=== PATIENT | female | born 1945 | race Caucasian/White ===

== ENCOUNTER → 2018-11-13 | Outpatient (CLI) | payer OTHER ==
--- NOTE | 2018-11-13 17:50 | RAD ---
DATE: 11/13/2018 EXAM: MAMMO MICKEY SCREENING BILATERAL HISTORY: Routine screening. Bilateral breast reduction. COMPARISON: 07/11/2014, 09/12/2016 mammographic exams This study was interpreted with the benefit of Computerized Aided Detection (CAD). Breast Density: FATTY The breast parenchyma is primarily fatty replaced. Breast parenchyma level density A. FINDINGS: Benign calcifications are present. No masses or new distortion. IMPRESSION: Stable BI-RADS CATEGORY: 1 NEGATIVE RECOMMENDED FOLLOW-UP: 12M 12 MONTH FOLLOW-UP PQRS compliance statement: Patient information was entered into a reminder system with a target due date in one year for the next mammogram. Mammography is a sensitive method for finding small breast cancers, but it does not detect them all and is not a substitute for careful clinical examination. A negative mammogram does not negate a clinically suspicious finding and should not result in delay in biopsying a clinically suspicious abnormality. "Our facility is accredited by the [employer] Mammography Program."
== END | disposition home or self-care (01) ==
LOC: MAMMO 08:14
PROVIDERS: ATTEND Nurse Practitioner Family
DX: Z12.31 Encounter for screening mammogram for malignant neoplasm of breast (principal)
CPT/HCPCS: 77063; 77067

== ENCOUNTER → 2019-10-03 | Outpatient (CLI) | payer OTHER ==
--- NOTE | 2019-10-04 08:50 | RAD ---
PROCEDURE: HIP RIGHT 2V WITH PELVIS STUDY DATE: 10/04/2019 CLINICAL INDICATION / HISTORY: Right hip pain. TECHNIQUE: Three views of the right hip were obtained. COMPARISON: Right hip x-rays of 09/16/2019 FINDINGS: A right dynamic hip screw is present. A comminuted right hip fracture is also seen but the alignment is overall anatomic. The greater trochanter major fracture fragment appears mildly distracted from the femoral shaft, leaving the superior aspect of the femoral neck fixation hardware likely uncovered by bone. This could represent a second, superimposed acute fracture on a previously fixated fracture. The previous hip x-rays showed an acute intertrochanteric fracture of the slightly different morphology to the current hip fracture. No hip dislocation. Visualized pelvis is unremarkable. The soft tissues are also unremarkable.. IMPRESSION: Right dynamic hip screw fixation of a prior hip fracture which shows good position and evidence of healing but likely new, superimposed acute fracture of the right greater trochanter, uncovering a portion of the fixation hardware. Electronically signed by: Saba Hamilton MD (10/04/2019 8:47 AM) [id number]
== END ==
LOC: DXRAD 16:30
PROVIDERS: ATTEND Nurse Practitioner Family
DX: S72.141D Displaced intertrochanteric fracture of right femur, subsequent encounter for closed fracture with routine healing (principal); X58.XXXD Exposure to other specified factors, subsequent encounter
CPT/HCPCS: 73502

== ENCOUNTER → 2019-10-30 | Outpatient (CLI) | payer MEDICARE ==
--- NOTE | 2019-10-30 15:10 | RAD ---
HIP RIGHT 2V WITH PELVIS Clinical Indication: Right hip pain. Comparison: AP pelvis and right hip 10/03/2019. Findings: No acute pelvic fracture is identified. Degenerative spondylosis lower lumbar spine. The sacroiliac joints may be partially fused. The left hip joint is intact. Redemonstrated dynamic right hip screw and intramedullary debbie. Distal locking screw. Stable slightly superiorly distracted fracture of the greater trochanter. No new fracture is seen. New callus formation is identified adjacent to the greater and lesser trochanters. IMPRESSION: Stable superiorly distracted fracture of the greater trochanter. Internal fixation hardware of the proximal femur is stable. There is new callus formation. Electronically signed by: Puneet Ferguson MD (10/30/2019 2:27 PM) [id number]
== END ==
LOC: DXRAD 13:47
PROVIDERS: ATTEND Orthopaedic Surgery
DX: S72.141D Displaced intertrochanteric fracture of right femur, subsequent encounter for closed fracture with routine healing (principal); X58.XXXD Exposure to other specified factors, subsequent encounter
CPT/HCPCS: 73502

== ENCOUNTER → 2019-11-27 | Outpatient (CLI) | payer MEDICARE ==
--- NOTE | 2019-11-27 09:30 | RAD ---
EXAM: Pelvis and right hip, 3 views. HISTORY: Pain. COMPARISON: 10/30/2019 FINDINGS: A frontal view the pelvis and frontal and frog-leg views of the right hip are obtained. There has been slight increased callus formation surrounding comminuted right femoral intertrochanteric fracture lines status post internal fixation. No new fracture is seen. There is degenerative change of the lower lumbar levels. IMPRESSION: Slight interval healing of a right femoral intertrochanteric fracture status post internal fixation. Electronically signed by: Delilah Mcclelland MD (11/27/2019 9:27 AM) [id number]
== END | disposition home or self-care (01) ==
LOC: RAD 09:11
PROVIDERS: ATTEND Physician Assistant
DX: S72.141D Displaced intertrochanteric fracture of right femur, subsequent encounter for closed fracture with routine healing (principal); M25.751 Osteophyte, right hip; X58.XXXD Exposure to other specified factors, subsequent encounter; Z98.890 Other specified postprocedural states
CPT/HCPCS: 73502

== ENCOUNTER → 2020-01-08 | Outpatient (CLI) | payer MEDICARE ==
--- NOTE | 2020-01-08 13:44 | RAD ---
2 views of the right hip compared to similar study dated 11/27/2023 right hip pain status post hip surgery. FINDINGS: There is been some additional callus formation about intertrochanteric fracture suggesting progressive healing. No new fracture or acute osseous abnormality. IMPRESSION: 1. Healing intratrochanteric fracture of the right femur. Electronically signed by: Jaret James MD (01/08/2020 1:41 PM) [id number]
== END | disposition home or self-care (01) ==
LOC: DXRAD 09:14
PROVIDERS: ATTEND Physician Assistant
DX: S72.141D Displaced intertrochanteric fracture of right femur, subsequent encounter for closed fracture with routine healing (principal); Z98.890 Other specified postprocedural states; X58.XXXD Exposure to other specified factors, subsequent encounter
CPT/HCPCS: 73502

== ENCOUNTER → 2021-02-16 | Outpatient (CLI) | payer OTHER ==
--- NOTE | 2021-02-16 16:27 | RAD ---
PROCEDURE: MG 2D BILAT SCREENING HISTORY: The patient is 75 years old and is seen for Reason: SCREENING / Spl. Instructions: / Histor y: . COMPARISON: November 13, 2018 and September 12, 2016 TECHNIQUE: CC and MLO views of both breasts were obtained. Images were processed by the X[employer]ified computer-aided detection system. DENSITY: The breast tissue is predominantly fatty. FINDINGS: No developing mass, suspicious calcifications or architectural distortion. IMPRESSION: Negative. No evidence of malignancy. Recommend annual screening mammograms per [employer] guidelines. She will be due in one year. BI-RADS category 1 Negative Patient entered into a reminder system for annual screening mammogram. Electronically signed by: Jet Macias DO (02/16/2021 4:25 PM) [id number]
== END ==
LOC: MAMMO 10:02
PROVIDERS: ATTEND Nurse Practitioner Family
DX: Z12.31 Encounter for screening mammogram for malignant neoplasm of breast (principal)
CPT/HCPCS: 77067